=== PATIENT | male | born 1970 | race Hispanic/Latino ===

== ENCOUNTER 2023-08-26 20:23 | Emergency (ER) | payer BC ==
[~2023-08-26] VITALS: Ht 170.2 cm; Wt 106.6 kg
[2023-08-26 20:31] VITALS: BP 135/88; PULSE 77; RESP 18
[2023-08-26] MEDS ORDERED: KETO10TA2 PO (21:14)
[2023-08-26] MEDS: ORPHENADRINE CITRATE 30 MG/ML ML IM ONE (21:14)
[2023-08-26] MEDS: KETOROLAC 15MG/ML VIAL (15MG/ML) IM ONE (21:14)
[2023-08-26] MEDS: TRIAMCINOLONE ACETONIDE 40 MG/ML 1ML VIAL IM ONE (21:14)
[2023-08-26] MEDS ORDERED: GABA-534 PO (21:14)
== END 2023-08-26 21:47 | disposition home or self-care (01) ==
LOC: EDH 20:23 → EDBD 20:23 → EDH 21:47
DX: S39.012A Strain of muscle, fascia and tendon of lower back, initial encounter (principal); E11.9 Type 2 diabetes mellitus without complications; X58.XXXA Exposure to other specified factors, initial encounter; Y93.89 Activity, other specified; Y92.89 Other specified places as the place of occurrence of the external cause; Y99.8 Other external cause status
CPT/HCPCS: 99284; 96372 ×3; J3301; J1885; J2360